=== PATIENT | female | born 1990 | race Hispanic/Latino ===

== ENCOUNTER 2020-01-02 12:34 | Outpatient (RCR) | payer MEDICAID, SELFPAY ==
--- NOTE | ~2020-01-02 | US_ITS ---
EXAMINATION: US OB follow up w BPP DATE: 01/02/2020 14:22 INDICATION: Third trimester. TECHNIQUE: Real-time pelvic ultrasound was performed. COMPARISON: None. FINDINGS: There is a single living fetus in vertex presentation. The placenta is fundal. heart rate is 1 23 beats per minute (bpm). The amniotic fluid index is 8.1 cm, which is normal. The following biometric data were obtained: head circumference (HC): 31.2 cm; abdominal circumference (AC): 32.4 cm; femur length (FL): 7.4 cm. These measurements are concordant. Estimated weight is 2927 g +/- 439 g, which correlates with 12th percentile when 01/09/20 is use d as estimated date of delivery. As single measurements, these parameters are each equal to the following estimated gestational ages: HC: 35 weeks 0 days. AC: 36 weeks 2 days. FL: 37 weeks 5 days. estimated gestational age based solely on measurements from this exam is 36 weeks 2 days +/- 2 weeks 4 days. Biophysical profile performed by the technologist: breathing (30 sec sustained breathing in 30 minutes): 2 out of 2 movement (3 gross body movements in 30 minutes): 2 out of 2 tone (one episode of uunypew-obnfjmroz-gickhlq limb movement): 2 out of 2 Amniotic fluid pocket (2 cm): 2 out of 2 Total score: 8 out of 8 IMPRESSION: 1. Single living fetus in vertex presentation. 2. Estimated weight is 2927 g +/- 439 g, which correlates with 12th percentile when 01/09/20 is used as estimated date of delivery. 3. Biophysical profile 8 out of 8. Reviewed, dictated and finalized at location A. IMPRESSION: 1. Single living fetus in vertex presentation. 2. Estimated weight is 2927 g +/- 439 g, which correlates with 12th perc entile when 01/09/20 is used as estimated date of delivery. 3. Biophysical profile 8 out of 8.
--- NOTE | 2020-01-02 15:01 | PC.NURSE ---
Dr. Harris updated on ultrasound report, NST and BPP results. Patient to remain on unit until Dr. Harris consults with [facility]. Dr. Harris will call with further instructions. Patient does not need to be monitored at this time.
[2020-01-02 15:25] VITALS: BP 114/74; PULSE 73
== END 2020-01-05 08:16 | disposition home or self-care (01) ==
LOC: ANHOBOP 12:34
PROVIDERS: Visit Provider Obstetrics & Gynecology
DX: O09.33 Supervision of pregnancy with insufficient antenatal care, third trimester (principal); Z3A.39 39 weeks gestation of pregnancy
CPT/HCPCS: 59025; 76816; 76819

== ENCOUNTER 2020-01-04 15:47 | Inpatient (IN) | payer MEDICAID, SELFPAY ==
[2020-01-04 16:00] VITALS: TEMP 36.6
[2020-01-04 16:04] VITALS: BMI 32.7
[2020-01-04] MEDS: LACTATED RINGERS 1,000 ML 125 ML IV CONT (16:15)
--- NOTE | 2020-01-04 16:15 | WPDANESEPPF ---
Anes - Initial Pre Proc Eval Procedure: Operation Date: 01/06/20 07:30 Proposed Procedures p Repeat Low Transverse Section - Robert Harris MD Date/Time: 01/04/20 16:15 Surgeon: Robert Harris MD Pre Op Diagnosis: Labor Patient Data Age: 29 Gender: F Height: 5 ft Weight: 76 kg Allergies Allergy/AdvReac Type Severity Reaction Status Date / Time No Known Allergies Allergy Verified 01/02/20 14:44 Home Medications Medication Instructions Recorded Confirmed Type [id number] 1 cap PO DAILY 01/02/20 01/02/20 History [One-A-Day Women's 1] Patient hx anesthesia problems: none Family hx anesthesia problems: none PMFSH Past Medical History Medical History (Updated 01/04/20 @ 16:16 by Jack Jurado MD) care insufficient Surgical History Surgical History (Updated 01/04/20 @ 16:16 by Jack Jurado MD) History of section Family History Family History Other No pertinent family history Social History Social History Smoking status: Never smoker Second hand tobacco smoke exposure: No Substance use: never Gender identity (if verbalized by the patient): Female Spiritual care concerns: No Anes - Eval Final PreProcedure Day of Procedure 01/04/20 16:15 Patient weight: overweight Heart: regular rate and rhythm Lungs: clear to auscultation Airway: Mallampati scale class II Neurological: alert and oriented Last oral intake: >/= 8 hours ASA classification: II Emergent: no Anesthetic plan: proceed Anesthesia type and monitoring: regional spinal and standard monitoring Informed Consent: The patient's anesthetic plan and its attendant risks and benefits were discussed with the patient and family who acted as wealth management manager.. Questions were solicited and answers provided to the satisfaction of the patient and family.
[2020-01-04 16:29] LABS: Basophils Percent Auto 0.2 % (0.2-1.2); Eosinophils Absolute Auto 0.1 K/mm3 (0-0.3); Eosinophils Percent Auto 0.8 % (0-4.4); Hematocrit 32.2 % (37.0-47.0); Hemoglobin 10.2 g/dL (12.0-15.0); Immature Granulocyte Absolute 0.05 K/mm3 (0.00-0.031); Immature Granulocyte Percent A 0.5 % (0-0.5); Lymphocytes Absolute Auto 2.31 K/mm3 (0.9-3.2); Lymphocytes Percent Auto 23.8 % (18.3-44.2); Mean Corpuscular HGB Conc 31.7 g/dl (32-36); Mean Corpuscular Hemoglobin 24.7 pg (26-34); Mean Platelet Volume 10.1 fl (7.4-10.4); Monocytes Absolute Auto 0.7 K/mm3 (0.1-0.6); Monocytes Percent Auto 6.9 % (2.6-8.5); Neutrophils Absolute Auto 6.6 K/mm3 (1.3-6.7); Neutrophils Percent Auto 67.8 % (45.5-73.1); Platelet Count Result 290 k/mm3 (150-375); Red Blood Count 4.13 M/mm3 (4.2-5.4); Red Cell Distribution Width 14.7 % (11.5-14.5); White Blood Count 9.7 K/mm3 (4.5-10.0)
[2020-01-04] MEDS: OXYTOCIN 30 UNITS/NS 500 ML 30 UNITS/500 ML BAG 999 UNITS IV CONT (16:40)
--- NOTE | 2020-01-04 17:10 | PM.IMHP ---
H&P: HPI History of Present Illness Date/Time: 01/04/20 17:10 Chief complaint: Labor Narrative: Ariadne Black is a 29 y/o HF [facility] 8 cm at 40 weeks. Patient just moved to the area from [place]. no other care other than one visit in [place] and one vist with me thursday Us today 38week ega normal charlene no amnio done Review of Systems Review of Systems: All systems reviewed & are unremarkable except as noted in HPI and below Constitutional: Constitutional: Reports no additional constitutional complaints Eyes: Eyes: Reports no additional eye complaints ENT: Reports system reviewed and no additional complaints, except as documented Cardiovascular: Cardiovascular: Reports no additional cardiovascular complaints Respiratory: Respiratory: Reports no additional respiratory complaints Gastrointestinal: Gastrointestinal: Reports no additional gastrointestinal complaints Genitourinary: Genitourinary: Reports no additional female genitourinary complaints Musculoskeletal: Musculoskeletal: Reports no additional musculoskeletal complaints Integumentary/Breasts: Skin/Breast: Reports system reviewed and no additional complaints, except as docu Neurologic: Reports system reviewed and no additional complaints, except as documented Psychiatric: Psychiatric: Reports no additional psychiatric complaints Endocrine: Endocrine: Reports no additional endocrine complaints Hematologic/Lymphatic: Hematologic/Lymphatic: Reports no additional hematologic/lymphatic complaints Allergic/Immunologic: Allergic/Immunologic: Reports no additional allergic/immunologic complaints [facility] Past Medical History Medical History (Updated 01/04/20 @ 17:22 by Robert Harris MD) Late care care insufficient Surgical History Surgical History (Updated 01/04/20 @ 17:17 by Robert Harris MD) Delivery by section History of section 07/14/2009 40w7 lbs.BreechFPrimary CesareanFull Term Birth[facility] Family History Family History Other No pertinent family history Social History Social History (Updated 01/04/20 @ 17:18 by Robert Harris MD) Smoking status: Never smoker Second hand tobacco smoke exposure: No Alcohol intake: never Substance use: never Substance use type: does not use Living arrangements: with family Occupation/Education: unemployed Gender identity (if verbalized by the patient): Female Sexual Orientation (if Verbalized by the Patient): Straight or Heterosexual Spiritual care concerns: No Agree to blood products: Yes Meds Home Medications and Allergies Home Medications Medication Instructions Recorded Confirmed Type [id number] 1 cap PO DAILY 01/02/20 01/02/20 History [One-A-Day Women's 1] Allergies Allergy/AdvReac Type Severity Reaction Status Date / Time No Known Allergies Allergy Verified 01/02/20 14:44 Exam Const: General: cooperative, healthy appearing, comfortable, no acute distress, well developed, alert, awake and Physically active Nutritional Appearance: thin Orientation/consciousness: patient oriented x3 Limitations: no limitations HENMT: Head: normal to inspection Ears: hearing grossly normal bilaterally General nose exam: Normal external nose present Face and sinus: normal facial exam Mouth: Yes Normal oral and palatal mucosa present Teeth and gingiva: dentition normal Throat: posterior oropharynx normal Eyes: General: appearance normal, both eyes and all related structures Neck: Neck: normal visual inspection and full ROM Chest: Chest palpation & inspection: normal inspection of the chest Breast/axilla inspection: normal inspection of the breasts Breast/axilla palpation: normal palpation of the breasts Resp: Effort & Ins
[2020-01-04] MEDS: OXYTOCIN 30 UNITS/NS 500 ML 30 UNITS/500 ML BAG 125 UNITS IV CONT (17:15)
--- NOTE | 2020-01-04 17:23 | P.HPUP_ITS ---
History and Physical Update Update Date/Time: 01/04/20 17:23 History and Physical has been reviewed, including an updated exam of the patient. There are NO changes in the patient's condition. Risks, benefits, and alternatives have been discussed and questions answered. Patient agrees to proceed with procedure. 29 y/o HF with late care only 1 visit in [place] at 25 weeks and 1 visit at 39 weeks in [place] with a history of previous section for breech presentation performed in [facility]. She is scheduled for repeat on ThursdayJanuary 05 presents at 40.2 weeks. she presents to [facility] with spontaneous onset of labor senait every 2 minutes active phase 8 cm dilated. I anticipate vaginal after C- section soon informed consent obtained
--- NOTE | 2020-01-04 17:27 | P.HP_ITS ---
Obstetrics - Admit Note Admission Note: record reviewed. No pertinent additions to the history and/or any subsequent changes in the physical findings that are not consistent with the expected course of the were found. Additions to the history and/or subsequent changes in the physical findings follow. None. 29 y/o HF with late care only 1 visit in [place] at 25 weeks and 1 visit at 39 weeks in [place] with a history of previous section for breech presentation performed in [facility]. She is scheduled for repeat on ThursdayJanuary 05 presents at 40.2 weeks. she presents to [facility] with spontaneous onset of labor senait every 2 minutes active phase 8 cm dilated. I anticipate vaginal after C- section soon informed consent obtained
--- NOTE | 2020-01-04 17:28 | P.PNOB_ITS ---
Pain Control Date/time seen: 01/04/20 17:28 Pain control: tolerating well Comments: 29 y/o HF with late care only 1 visit in [place] at 25 weeks and 1 visit at 39 weeks in [place] with a history of previous section for breech presentation performed in [facility]. She is scheduled for repeat on ThursdayJanuary 05 presents at 40.2 weeks. she presents to [facility] with spontaneous onset of labor senait every 2 minutes active phase 8 cm dilated. I anticipate vaginal after C- section soon informed consent obtained Pelvic Exam Dilation (cm): 9 Effacement (%): 100 station: +1 Amniotic membrane status: Ruptured ( amniotomy performed clear fluid obtained a nterior rim) Contractions Monitor mode: External Contraction frequency: 2 Contraction duration: 45 Contraction pattern: Regular Contraction phase: Resting Contraction intensity: Strong/Firm Status status: Category l Assessment and Plan Assessment: active labor and other ( previous undergoing trial of labor with vaginal after due to rapid active phase) Plan: continuous present management and other ( vaginal after after trial of labor due to rapid active phase anticipate vaginal delivery soon informed consent obtained patient understands her condition procedure and risks and agrees to proceed)
--- NOTE | 2020-01-04 17:30 | P.PCNOB_ITS ---
OB - Delivery Note Procedure Delivery date: 01/04/20 Procedure: Procedures Operation Date: 01/06/20 07:30 Normal spontaneous vertex vaginal delivery vaginal after previous section - successful Viable male infant delivered over an intact perineum spontaneous delivery and placenta events: Previous Intrapartal events: Precipitous Labor < 3 hours Induction method: none Delivery augmentation: rupture of membranes Delivery monitor: external FHT and external uterine Route of delivery: Laceration Description: None Specimen: Yes ( placenta, cord blood gases, cord blood) Estimated blood loss (mL): 50 Anesthesia type: None Disposition: floor Complications: none Narrative: normal spontaneous vertex vaginal delivery a viable male over an intact perineum normal delivery of anterior shoulder delivered placed onto the maternal abdomen cord clamped and cut spontaneous respirations and cry no observed abnormalities of the exam handed to nursery nurse in attendance scores 8 and 9 at 1 and 5 minutes weighing 7 lb 3 oz 19-1/2 inches long taken to the nursery in stable condition placenta cord gases cord blood obtained and then the placenta was delivered spontaneously intact with three-vessel cord sent to pathology the uterus contracted well with Pitocin given intravenously there were not cut stairs or lacerations blood loss 50 mL delivery in room [address] Goodwin thick circumcision desired normal care---successful Baby Date of : 01/04/20 Time of : 16:38 Weeks of gestation at delivery: 39 Infant gender: Male Weight (pounds): 7 Weight (ounces): 3 presentation: vertex position: Left Occiput Anterior Placenta delivery description: Spontaneous and Normal Configuration cord vessel description: 3 Vessels score one minute: 8 score five minutes: 9
[2020-01-04 17:35] LABS: HIV 1/2 Ab P24 Ag Result Negative (Negative)
[2020-01-04 17:36] LABS: Rubella IgG Antibody 78.5 IU/ML
[2020-01-04 17:39] LABS: Hepatitis B Surface Antigen Negative (Negative)
[2020-01-04] MEDS: AMPICILLIN 2 GM/NS 100 ML 2 GM/100 ML BAG IVPB (18:28)
--- NOTE | 2020-01-04 19:28 | OBPPTRN ---
Patient transferred to post room #288 via wheelchair with in crib. Support person present. Oriented to unit, room, information board, rooming in, admission packet and security measures. Patient verbalizes understanding.
[2020-01-04 20:00] VITALS: BP 101/60; PULSE 77; RESP 17; TEMP 36.9
[2020-01-05] MEDS: IBUPROFEN 600 MG TABLET PO ×3 (04:47→18:33)
[2020-01-05 05:44] LABS: Hematocrit 29.7 % (37.0-47.0); Hemoglobin 9.5 g/dL (12.0-15.0)
--- NOTE | 2020-01-05 07:00 | PC.NURSE ---
PT introductions made and plan of care discussed per post , pain management, breast feeding, daily care activities. PT verbalized understanding through her who speaks ukrainian
[2020-01-05 08:00] VITALS: BP 91/61; PULSE 67; RESP 18; TEMP 36.6; O2SAT 99
[2020-01-05 10:00] VITALS: PULSE 67; RESP 18; O2SAT 99
[2020-01-05 11:16] LABS: Rapid Plasma Reagin Non-Reactive (NonReactive)
[2020-01-05] MEDS: LANOLIN (LANSINOH) 7.5 GM CREAM 1 APPLIC TOPICAL (12:49)
[2020-01-05] MEDS: POLYSACCHARIDE IRON COMPLEX 150 MG CAPSULE PO ×2 (12:49→18:33)
[2020-01-05] MEDS: DOCUSATE SODIUM 100 MG CAPSULE PO ×2 (12:49→18:33)
[2020-01-05] MEDS: MULTIVIT/MIN/PREN/FOL AC/IRON TABLET 1 TAB PO (12:49)
--- NOTE | 2020-01-05 14:50 | PC.NURSE ---
Consult with pt., with interpretation line and FOB. Consulted with patient, mother reports is sleepy at times and is having difficulties keeping awake. Mother has supplemented a few times due to sleepiness. Once latched mother reports infant is nursing with slight tenderness. Discussed latch and how this may impact mother?s comfort and infant intake. Mother reports first child for 7 years. Reviewed feeding cues, frequencies, duration of feedings, feeding elimination flow sheet, and signs of adequate intake. Demonstrated stimulation techniques to wake for feeding. Assisted with infant to breast. Reviewed positioning/alignment in cross cradle, holding breast in U hold and guided asymmetrical latch on. Discussed the rational for each. Infant was able to latch correctly. Infant nursed in bursts with eager steady draws and occasional swallowing noted followed with long pausing. Reviewed signs of a correct latch, effective nursing and suck swallow ratio. Infant was able to maintain latch without discomfort to mother. Nipple care reviewed. Advised to stimulate infant while feeding to keep awake and effectively feeding for increased intake and to assist with maintaining deep latch. Demonstrated how to adjust latch more deeply while feeding. Instructed mother to call out for RN assistance if she is unable to latch for feeding or she has discomfort with nursing. Instructed feeding should be initiated three hours from start of last feeding or if feeding cues are noted before. Mother voiced understanding of information shared.
--- NOTE | 2020-01-05 17:19 | P.PNOB_ITS ---
OB - PN: Subj Subjective Date/time seen: 01/05/20 17:20 Patient comments: no complaints, pain well controlled, tolerating diet and flatus present [place] baby status: doing well [place] feeding status: exclusively breast feeding OB - PN: Obj Data Labs CBC & Chem 7: 01/05/20 04:40 Labs: Laboratory Results - last 24 hr 01/04/20 01/04/20 01/04/20 16:19 16:19 16:19 Hgb Hct RPR Hep Bs Antigen HIV 1&2 Ab/P24 Ag 4thGn Negative Rubella IgG Antibody 78.5 Blood Type O Positive Antibody Screen Negative 01/04/20 01/04/20 01/05/20 16:19 16:20 04:40 Hgb 9.5 L Hct 29.7 L RPR Non-reactive Hep Bs Antigen Negative HIV 1&2 Ab/P24 Ag 4thGn Rubella IgG Antibody Blood Type Antibody Screen OB - PN A/P Assessment and Plan (1) , delivered: Code(s): O34.219 - Maternal care for unspecified type scar from previous delivery Status: Acute (2) Term delivered: Code(s): O80 - Encounter for full-term uncomplicated delivery Status: Acute Time Spent With Patient Time: Total time spent is greater than 50% in coordination of care (as documented) at patient's floor/unit and/or counseling patient: Review of Systems Review of Systems: All systems reviewed & are unremarkable except as noted in HPI and below Exam Const: General: cooperative, healthy appearing, comfortable, no acute distress and well developed Nutritional Appearance: well nourished Orie ntation/consciousness: patient oriented x3 Limitations: no limitations HENMT: Head: normal to inspection and atraumatic Eyes: General: appearance normal, both eyes and all related structures Neck: Neck: normal visual inspection and full ROM Chest: Chest palpation & inspection: normal inspection of the chest Breast/axilla inspection: normal inspection of the breasts Breast/axilla palpation: normal palpation of the breasts Resp: Effort & Inspection: normal respiratory effort Auscultation: clear to auscultation bilaterally Cardio: Palpation: normal PMI Rate: regular rate Rhythm: regular rhythm GI: Inspection: normal to inspection GI Palp: Yes Soft to palpation Percussion: Yes normal to percussion Auscultation: normal bowel sounds : General: Yes bladder normal to inspection External Female Exam: normal external appearance Back/Spine/Pelvis: Back: no CVA tenderness Skin: General skin exam: normal color Neuro: General: patient oriented x3, gait normal, tone normal, moves all extremities, Normal light touch and pain sensation and no focal motor deficits Extrem: General: normal to inspection and full ROM Psych: Appearance: grossly normal Mental Status: mental status grossly normal Speech and movement: Normal speech and movement present Affect: normal affect Attitude: cooperative Thought process: Normal thought process present Thought content: Yes Normal thought content present Insight: Good insight present (Psych) Judgement: Good judgement present (Psych)
[2020-01-05 21:08] VITALS: BP 99/65; PULSE 74; RESP 18; TEMP 36.8
[2020-01-06] MEDS: IBUPROFEN 600 MG TABLET PO (04:41)
[2020-01-06 08:00] VITALS: BP 103/73; PULSE 83; RESP 18; TEMP 36.8; O2SAT 100
--- NOTE | 2020-01-06 09:33 | PM.OBDSVD ---
DS: Admitting Diagnosis Admitting Diagnosis Admitting Diagnosis: term spontaneous onset of Labor previous section rapid active phase desires late care DS: Discharge Diagnosis Discharge Diagnosis (1) Term delivered: Code(s): O80 - Encounter for full-term uncomplicated delivery Status: Acute (2) , delivered: Code(s): O34.219 - Maternal care for unspecified type scar from previous delivery Status: Acute (3) Spontaneous onset of labor: Status: Acute (4) Delivery by section: Status: Acute (5) Late care: Code(s): O09.30 - Supervision of with insufficient care, unspecified trimester Status: Acute OB - DS: Summary Hospital Course Time spent discussing smoking cessation with patient: 3 to 10 minutes OB Procedures : Ultrasound OB Procedures Intrapartum: OB Procedures: : None Peripartum Data Delivery Method: Natural Vaginal Laceration description: None Episiotomy description: None Procedures: Procedures Operation Date: 01/06/20 07:30 normal spontaneous vertex vaginal delivery viable male and placenta successful vaginal after section complications: none [place] 1: Gender: Male Disposition of : home Status at Discharge Functional status at discharge: independent ambulation Overall status at discharge: patient is back to baseline Time Spent with Patient Time attestation: Total time spent providing and/or coordinating discharge services: Time spent: Less than 30 minutes Exam Const: General: cooperative, healthy appearing, comfortable, no acute distress, well developed, alert, awake and Physically active Nutritional Appearance: thin Orientation/consciousness: oriented to person Limitations: no limitations HENMT: Head: normal to inspection Eyes: General: appearance normal, both eyes and all related structures Neck: Neck: normal visual inspection Chest: Chest palpation & inspection: normal inspection of the chest Resp: Effort & Inspection: normal respiratory effort Cardio: Rate: regular rate Rhythm: regular rhythm GI: Inspection: normal to inspection : External Female Exam: normal external appearance Back/Spine/Pelvis: Back: no CVA tenderness Skin: General skin exam: normal color Neuro: General: oriented to person, oriented to place, oriented to time, patient oriented x3, gait normal, tone normal, moves all extremities, Normal light touch and pain sensation, no meningeal signs, no focal motor deficits and CN's II-XI intact bilaterally Extrem: General: normal to inspection and full ROM Psych: Appearance: grossly normal Mental Status: mental status grossly normal Speech and movement: Normal speech and movement present Affect: normal affect Attitude: cooperative Thought process: Normal thought process present Thought content: Yes Normal thought content present Insight: Good insight present (Psych) Judgement: Good judgement present (Psych) DS: Data Data Completed and Pending Pending studies at discharge: Pending at discharge 01/04/20 17:23 Surgical [PTH] Routine Labs on day of discharge: Labs from last 24 hours 01/04/20 01/04/20 01/04/20 16:20 16:19 16:19 WBC RBC Hgb Hct MCV MCH MCHC RDW Plt Count MPV Immature Gran % (Auto) Neut % (Auto) Lymph % (Auto) [place] % (Auto) Eos % (Auto) Baso % (Auto) Lymph # (Auto) [place] # (Auto) Eos # (Auto) Baso # (Auto) Abs Immat Gran (auto) Absolute Neuts (auto) Absolute Nucleated RBC Nucleated RBC % RPR Pending Hep Bs Antigen Negative HIV 1&2 Ab/P24 Ag 4thGn Rubella IgG Antibody Blood Type O Positive Antibody Screen Negative 01/04/20 01/04/20 01/04/20 16:19 16:19 16:19 WBC 9.7 RBC 4.13 L Hgb
--- NOTE | 2020-01-06 09:34 | P.PNOB_ITS ---
OB - PN: Subj Subjective Date/time seen: 01/06/20 09:34 Patient comments: no complaints, pain well controlled, tolerating diet and flatus present [place] baby status: doing well [place] feeding status: exclusively breast feeding OB - PN: Obj Data Labs CBC & Chem 7: 01/05/20 04:40 Labs: Laboratory Results - last 24 hr 01/04/20 16:20 RPR Non-reactive OB - PN A/P Assessment and Plan (1) , delivered: Code(s): O34.219 - Maternal care for unspecified type scar from previous delivery Status: Acute Assessment and Plan: discharged to home today return to the office in 3 weeks (2) Term delivered: Code(s): O80 - Encounter for full-term uncomplicated delivery Status: Acute Time Spent With Patient Time: Total time spent is greater than 50% in coordination of care (as documented) at patient's floor/unit and/or counseling patient: Review of Systems Review of Systems: All systems reviewed & are unremarkable except as noted in HPI and below Exam Const: General: cooperative, healthy appearing, comfortable, alert, awake and Physically active HENMT: Head: normal to inspection Eyes: General: appearance normal, both eyes and all related structures Neck: Neck: normal visual inspection Chest: Chest palpation & inspection: normal inspection of the chest Resp: Effort & Inspection: normal respiratory effort Cardio: Rate: regular rate Rhythm: regular rhythm GI: GI Palp: Yes Soft to palpation Auscultation: normal bowel sounds : General: Yes no CVA tenderness External Female Exam: normal external appearance Back/Spine/Pelvis: Back: no CVA tenderness Skin: General skin exam: normal color Neuro: General: patient oriented x3, gait normal, tone normal, moves all extremities and Normal light touch and pain sensation Extrem: General: normal to inspection and full ROM Psych: Appearance: grossly normal Speech and movement: Normal speech and movement present Affect: normal affect Attitude: cooperative Thought process: Normal thought process present Thought content: Yes Normal thought content present Insight: Good insight present (Psych) Judgement: Good judgement present (Psych)
[2020-01-06] MEDS: POLYSACCHARIDE IRON COMPLEX 150 MG CAPSULE PO (12:29)
[2020-01-06] MEDS: DOCUSATE SODIUM 100 MG CAPSULE PO (12:29)
[2020-01-06] MEDS: MULTIVIT/MIN/PREN/FOL AC/IRON TABLET 1 TAB PO (12:29)
--- NOTE | 2020-01-06 15:00 | PC.NURSE ---
Education with circular saw edge fuser. Observed mother is able to independently latch with appropriate positioning/alignment. She denies any nipple discomfort, is feeding as required and waking to feed if needed. Infant has had at least 8 effective feedings in the past 24 hours, and is currently meeting outcomes for weight, output, jaundice and feeding frequencies. Mother states she feels confident to continue effective at home. Reviewed transition to breast milk, signs of adequate intake, and engorgement/relief. Instructed to call ICP if intake/output less than required. Reviewed regular medications mother is taking. Information provided per [place]. Reviewed community resources on the [facility] website and in the Mom/Baby guide. Information on outpatient services provided. Mother has no further questions at this time.
--- NOTE | 2020-01-06 15:18 | PC.NURSE ---
Patient discharged home with in safety seat accompanied by father of baby. Patient and infant discharged at 1518 on 01/06/2020.
--- NOTE | 2020-01-06 16:00 | PCCCNOTE ---
Both FOB and pt. speak primarily Occitan. ShepHertz device was utilized with interpretor Amarjit providing assistance. Met with pt. today who reports this is her second child. FOB is in room. Pt. has all necessary supplies including a car seat, crib, clothing and bottles. Pt. has family support. Resources provided. Pt. and FOB deny any further needs.
[2020-01-07 10:49] VITALS: BP 106/64; PULSE 76; RESP 18; TEMP 36.9; O2SAT 100
== END 2020-01-06 15:18 | disposition home or self-care (01) | DRG 560 ==
LOC: ANHLDR 17:52 → ANHOB2 19:33
PROVIDERS: Admitting Provider Obstetrics & Gynecology; Visit Provider Obstetrics & Gynecology
DX: O62.3 Precipitate labor (principal); Z37.0 Single live birth; Z3A.40 40 weeks gestation of pregnancy; O34.211 Maternal care for low transverse scar from previous cesarean delivery
CPT/HCPCS: 36415; 85014; 85018; 85025; 86592; 86703; 86762; 86850; 86900; 86901; 87340; 88307; A9270; G0432; J0290; J2590; J7120

== ENCOUNTER 2023-01-02 22:02 | Observation (INO) | payer BC, SELFPAY ==
[2023-01-02] VITALS (29 sets, daily range): BP systolic 99–114; BP diastolic 61–79; PULSE 67–83; TEMP 36–36.6; O2SAT 98–100
[2023-01-02] MEDS: LACTATED RINGERS 1,000 ML 999 ML IV CONT (23:12)
--- NOTE | 2023-01-13 08:39 | PM.OBTRLD ---
OB - Triage/Final Diagnosis Visit Information Reason for evaluation: threatened labor Comments/Additional reasons for admission: I have assessed the risk for this patient, Ariadne Sai Wayne, and determined that she would benefit from observation care.
== END 2023-01-03 00:25 | disposition home or self-care (01) ==
PROVIDERS: Admitting Provider Obstetrics & Gynecology Gynecology; Visit Provider Obstetrics & Gynecology Gynecology
DX: O47.02 False labor before 37 completed weeks of gestation, second trimester (principal); Z3A.27 27 weeks gestation of pregnancy
CPT/HCPCS: G0378; G0379; J7120

== ENCOUNTER 2023-01-03 13:23 | Inpatient (IN) | payer BC, SELFPAY ==
[2023-01-03] VITALS (17 sets, daily range): BP systolic 94–123; BP diastolic 53–83; PULSE 69–129; RESP 16; TEMP 36.9; O2SAT 99; BMI 29.7
--- NOTE | 2023-01-03 15:07 | WPDHPUPDATE1 ---
History and Physical Update Update Date/Time: 01/03/23 15:07 History and Physical has been reviewed, including an updated exam of the patient. There are NO changes in the patient's condition. Risks, benefits, and alternatives have been discussed and questions answered. Patient agrees to proceed with procedure.
--- NOTE | 2023-01-03 15:07 | PM.IMHP ---
H&P: HPI History of Present Illness Date/Time: 01/03/23 15:07 Chief Complaint: Active labor Narrative: The patient is a 32-year-old 3 para 2 admitted in active labor. The patient was seen in triage early this morning and was 2cm and had no cervical change. The patient was instructed to proceed if labor occurred to her hospital of record which is [facility]. Patient had a worsening of her contractions and arrived here by ambulance in labor. The patient is Eritrean-speaking. A dry primer powder blender was used by the RN for verifying her health history just prior to my arrival. The patient has been receiving care at the ground at [facility] and per her received records has had good care. Patient's appears to have been uncomplicated. Her labs O positive, rubella immune, RPR negative, HIV negative, hepatitis-B surface antigen negative, group B strep negative. The patient with a prior section for breech in [facility] followed by subsequent vaginal delivery at [facility] by Dr. Harris after arriving to the hospital at 8cm. That had limited care with 2 visits. No operative note is available. The patient was informed if she wishes to she needed to seek care at her hospital record and her physician that has been caring for her throughout this . The patient was instructed at 3:00 a.m. that if she returned [place] that I would do a repeat . Patient has been informed of the current plan to proceed with due to cervical change through the gas pump attendant and the patient is in and agreement with the plan. [facility] Surgical History Surgical History (Updated 01/03/23 @ 15:17 by Jeannie Hunter MD) Delivery by section History of section 07/14/2009 40w7 lbs.BreechFPrimary CesareanFull Term [facility] Family History Family History Other No pertinent family history Social History Social History (Updated 01/04/20 @ 17:18 by Robert Harris MD) Smoking status: Never smoker Second hand tobacco smoke exposure: No Alcohol intake: never Substance use: never Substance use type: does not use Living arrangements: with family Occupation/Education: unemployed Gender identity (if verbalized by the patient): Female Sexual Orientation (if Verbalized by the Patient): Straight or Heterosexual Spiritual care concerns: No Agree to blood products: Yes Meds Home Medications and Allergies Home Medications Medication Instructions Recorded Confirmed Type vit 123-iron 28 mg-folic 1 cap PO DAILY 01/02/20 01/02/20 History acid 800 hoz-ddsie-3r 235 mg capsule (One-A-Day Women's 1 DHA-FA) Allergies Allergy/AdvReac Type Severity Reaction Status Date / Time No Known Allergies Allergy Verified 01/02/20 14:44 Vital Signs Vital Signs - 24 hr 01/03/23 13:31 01/03/23 13:45 01/03/23 14:00 Pulse Rate 76 74 72 Blood Pressure 110/74 113/70 101/66 01/03/23 14:15 01/03/23 14:30 01/03/23 14:45 Pulse Rate 71 69 77 Blood Pressure 94/59 L 95/56 L 104/64 Exam Const: General: No comfortable Nutritional Appearance: average body habitus Resp: Effort & Inspection: normal respiratory effort GI: Inspection: other ( gravid) GI Palp: No abdominal tenderness : Manual OB Exam: dilated (4.5) and effaced ( 80%) Assessment and Plan Assessment and plan (1) 39 weeks gestation of : Code(s): Z3A.39 - 39 weeks gestation of Status: Acute (2) Spontaneous onset of labor: Status: Acute (3) Previous section complicating : Code(s): O34.219 - Maternal care for unspecified type scar from previous delivery Status: Acute Assessment and Plan: plan to proceed with repeat section once the
[2023-01-03] MEDS: LACTATED RINGERS 1,000 ML 125 ML IV CONT (15:10)
[2023-01-03 15:14] LABS: Basophils Percent Auto 0.3 % (0.2-1.2); Eosinophils Absolute Auto 0.1 K/mm3 (0-0.3); Eosinophils Percent Auto 0.8 % (0-4.4); Hematocrit 35.1 % (37.0-47.0); Hemoglobin 11.6 g/dL (12.0-15.0); Immature Granulocyte Absolute 0.06 K/mm3 (0.00-0.031); Immature Granulocyte Percent A 0.5 % (0-0.5); Lymphocytes Absolute Auto 2.53 K/mm3 (0.9-3.2); Lymphocytes Percent Auto 21.3 % (18.3-44.2); Mean Corpuscular Hemoglobin 28.2 pg (26-34); Mean Corpuscular Volume 85.2 fl (80-100); Mean Platelet Volume 10.1 fl (7.4-10.4); Monocytes Absolute Auto 0.7 K/mm3 (0.1-0.6); Monocytes Percent Auto 6.2 % (2.6-8.5); Neutrophils Absolute Auto 8.4 K/mm3 (1.3-6.7); Neutrophils Percent Auto 70.9 % (45.5-73.1); Platelet Count Result 273 k/mm3 (150-375); Red Blood Count 4.12 M/mm3 (4.2-5.4); Red Cell Distribution Width 13.4 % (11.5-14.5); White Blood Count 11.9 K/mm3 (4.5-10.0)
--- NOTE | 2023-01-03 15:17 | LDADM ---
This patient, Ariadne Black, was admitted to Labor/Delivery/Recovery 106 on 01/03/23 at 14:30. Plans for labor, pain management and were discussed with patient. Patient/family oriented to hospital policies and general routines including ID bracelet, bed and alarms, visiting hours, pain management, procedures, bathroom and other care routines, personal items, smoking policy, room service/diet and guest tray routines, infant security routines, and visiting hours. Patient/Family are encouraged to report perceived risks to care and to ask questions if they do not understand what they are told or what they should do. See OBIX for further documentation.
--- NOTE | 2023-01-03 15:41 | PM.OBPRVD ---
OB - Delivery Note Procedure Delivery date: 01/03/23 Procedure: Procedures Operation Date: 01/03/23 15:15 <No data on this case meets the specified criteria> Events: Previous Delivery Induction method: None Delivery monitor: External FHT and External Uterine Route of delivery: Laceration Description: Perineal - 2nd Degree Delivery repair: vicryl (3-0) Specimen: No Quantitative Blood Loss (ml): 150 Anesthesia type: Local Disposition: Floor Complications: none Narrative: While awaiting labs to proceed with the patient called out in severe pain and when checked was noted to be complete with a bulging bag to the introitus. The electrician rectifier maintenance service was immediately called and talked to the patient through the remainder of the delivery, placental delivery, and suturing of her laceration. The water quickly broke and the patient began pushing and delivered over the next minute into the bed under controlled circumstances. [place] Baby Date of : 01/03/23 Weeks of gestation at delivery: 39 gender: Female Weight (pounds): 7 Weight (ounces): 11 presentation: vertex position: Right Occiput Anterior Placenta delivery description: Spontaneous Cord Vessel Description: 3 Vessels score one minute: 8 score five minutes: 9
--- NOTE | 2023-01-03 15:44 | PM.OBDSVD ---
DS: Admitting Diagnosis Discharge Date 01/04/23 Admitting Diagnosis Active labor at 39 weeks with previous section DS: Discharge Diagnosis Discharge Diagnosis (1) , delivered: Code(s): O34.219 - Maternal care for unspecified type scar from previous delivery Status: Acute (2) 39 weeks gestation of : Code(s): Z3A.39 - 39 weeks gestation of Status: Acute (3) Previous section complicating : Code(s): O34.219 - Maternal care for unspecified type scar from previous delivery Status: Acute OB - DS: Summary OB Procedures : Ultrasound OB Procedures Intrapartum: OB Procedures: : None Peripartum Data Infant Delivery Method: Natural Vaginal Laceration Description: Perineal - 2nd Degree Procedures: Procedures Operation Date: 01/03/23 15:15 <No data on this case meets the specified criteria> complications: none Status at Discharge Functional status at discharge: independent ambulation Overall status at discharge: patient is progressing back to baseline Time Spent with Patient Time attestation: Total time spent providing and/or coordinating discharge services: DS: Data Data Completed and Pending Labs on day of discharge: Labs from last 24 hours 01/03/23 15:09 WBC 11.9 H RBC 4.12 L Hgb 11.6 L Hct 35.1 L MCV 85.2 MCH 28.2 MCHC 33.0 RDW 13.4 Plt Count 273 MPV 10.1 Immature Gran % (Auto) 0.5 Neut % (Auto) 70.9 Lymph % (Auto) 21.3 [place] % (Auto) 6.2 Eos % (Auto) 0.8 Baso % (Auto) 0.3 Lymph # (Auto) 2.53 [place] # (Auto) 0.7 H Eos # (Auto) 0.1 Baso # (Auto) 0.0 Abs Immat Gran (auto) 0.06 H Absolute Neuts (auto) 8.4 H Absolute Nucleated RBC 0.0 Nucleated RBC % 0.0 RPR Pending Discharge Plan Discharge Attending physician on discharge: Jeannie Hunter Discharging Clinician: Lynne Del Rosario Anticipated Discharge Date/Time: 01/04/23 11:00 Patient Disposition: Home, Self-Care Activity: may shower and pelvic rest Diet: regular Wound Care Instructions: follow printed instructions Discharge Instructions: Education: Mom and Baby Guide Given to: Mother Follow-Up: Call your delivering provider's office for an appointment to be seen in: 6 Weeks Mom and baby should come to the [facility] for the follow-up appointment. Appointment Date/Time: Thursday, January 05, 2023 at 9:00 am What to expect at your follow-up visit: Physical Assessment, Blood Pressure Check Call [phone] if you are unable to keep your appointment time. BREAST CARE: * Wear a snug supportive bra. * For engorgement discomfort: Breast Feeding: * Apply warm moist washcloths * Express milk as needed to relieve engorgement * Wear loose clothing Bottle Feeding: * May apply ice packs * For sore nipples: * Identify correct latch-on * Apply warm moist washcloths before and after nursing * Air dry nipples after nursing * May apply Lansinoh cream to nipples PERINEAL CARE: * Until bleeding stops, use your ignacia bottle after urinating * Change your pad frequently throughout the day * You may take sitz baths several times a day (fill your bathtub with warm water and soak for 20 minutes.) Do NOT bathe in the water * No tub baths until seen by your physician - You may shower ACTIVITY: * Rest as much as possible. * Do not exercise or lift anything heavier than your baby (such as laundry or other children.) * Avoid stairs or driving as much as possible. * Do not put anything into the vagina. No douching, tampons, or sexual activity until seen by physician. NOTIFY PHYSICIAN IF YOU HAVE ANY QUESTIONS OR IF ANY OF THE FOLLOWING SYMPTOMS OCCUR: * If your perineum becomes red, swollen, or more painful than what you have experienced in the hospital
--- NOTE | 2023-01-03 15:57 | PC.NURSE ---
Patient consented for section. OR team including MD present at 1500. Prepping patient for OR when patient became extremely uncomfortable and began screaming in pain. RN reassessed cervical exam at 1520 and found patient to be completely dilated with a very bulgy bag of membranes. Called MD and nursery into labor room. Patient spontaneously ruptured at 1524 and delivered a baby girl at 1525.
[2023-01-03] MEDS: OXYTOCIN 30 UNITS/NS 500 ML 30 UNITS/500 ML BAG 125 UNITS IV CONT (16:05)
--- NOTE | 2023-01-03 16:49 | PC.NURSE ---
Filled out consent forms with patient using supervisor shed workers. Playroom Attendant ID [id number].
[2023-01-03] MEDS: BENZOCAINE 20% AER SPR (*SP) 56 GM CAN 1 SPRAY TOPICAL (17:32)
[2023-01-03] MEDS: WITCH HAZEL 40 PADS 1 PAD TOPICAL (17:32)
--- NOTE | 2023-01-03 19:57 | OBPPTRN ---
01/03/2023 at 1749 Patient transferred to post room #291 by first floor staff. Patient oriented to unit, room, information board, rooming in, admission packet and security measures with the use of the language line. Patient verbalizes understanding.
[2023-01-03] MEDS: ACETAMINOPHEN 325 MG TABLET 650 MG PO (23:14)
[2023-01-04 03:13] LABS: Hemoglobin 9.9 g/dL (12.0-15.0)
--- NOTE | 2023-01-04 07:00 | PC.NURSE ---
PT introductions made and plan of care discussed per post , pain management, breast feeding, daily care activities and pending discharge to home. PT speaks only Kinyarwanda and language is a barrier to learning. Spouse bilingual and able to help interpret for patient. Pt received such instructions per one to one discussion, mom baby care guide and demonstrations this shift. PT verbalized understanding of such instruction.
[2023-01-04 10:00] VITALS: BP 94/56; PULSE 79; RESP 18; TEMP 36.2; O2SAT 100
--- NOTE | 2023-01-04 10:16 | PM.OBPNVD ---
OB - PN: Subj Subjective Date/time seen: 01/04/23 0940 Interval history: PPD 1 from . Doing well. Urinating without difficulty. Denies passing any large clots. Denies dizziness with ambulating. Tolerating po food and fluids. Bonding with . well. Patient comments: no complaints and pain well controlled baby status: doing well and nursing well [place] feeding status: exclusively breast feeding Narrative: Collateral Specialist Jewel #[id number] used for discussion and exam. OB - PN: Obj Data Labs 01/04/23 03:00 Labs: Laboratory Results - last 24 hr 01/03/23 01/04/23 15:09 03:00 WBC 11.9 H RBC 4.12 L Hgb 11.6 L 9.9 L Hct 35.1 L 30.0 L MCV 85.2 MCH 28.2 MCHC 33.0 RDW 13.4 Plt Count 273 MPV 10.1 Immature Gran % (Auto) 0.5 Neut % (Auto) 70.9 Lymph % (Auto) 21.3 [place] % (Auto) 6.2 Eos % (Auto) 0.8 Baso % (Auto) 0.3 Lymph # (Auto) 2.53 [place] # (Auto) 0.7 H Eos # (Auto) 0.1 Baso # (Auto) 0.0 Abs Immat Gran (auto) 0.06 H Absolute Neuts (auto) 8.4 H Absolute Nucleated RBC 0.0 Nucleated RBC % 0.0 Blood Type O Positive Antibody Screen Negative OB - PN A/P Assessment and Plan (1) , delivered: Code(s): O34.219 - Maternal care for unspecified type scar from previous delivery Status: Acute (2) Patient is a currently breast-feeding mother: Code(s): Z39.1 - Encounter for care and examination of lactating mother Status: Acute Plan day: 1 Plan: discharge home Comments: Pt desires DC home today. Plans to follow up at her primary CALIBRATION TECHNICIAN's office. Plans Nexplanon placement at 6 weeks for contraception. Time Spent With Patient Time: Total time spent is greater than 50% in coordination of care (as documented) at patient's floor/unit and/or counseling patient: Review of Systems Review of Systems: All systems reviewed & are unremarkable except as noted in HPI and below Exam Narrative: Alert and oriented. Mood is pleasant and cooperative. Perineum with minimal edema. Fundus firm and below umbilicus. Const: General: cooperative, healthy appearing, no acute distress and alert Orientation/consciousness: patient oriented x3 Limitations: no limitations Resp: Effort & Inspection: normal respiratory effort and able to speak in complete sentences Auscultation: clear to auscultation bilaterally Cardio: Rate: regular rate GI: Inspection: normal to inspection Auscultation: normal bowel sounds : General: Yes bladder normal to palpation Bimanual exam- vagina & uterus: bladder normal to palpation OB/external & speculum: vaginal bleeding Other: Fundus firm and below U Skin: General skin exam: normal color and no rashes or lesions noted Neuro: General: patient oriented x3 and moves all extremities Cognition (Neuro): normal cognition Extrem: General: normal to inspection and no calf tenderness Psych: Appearance: grossly normal Mental Status: mental status grossly normal Affect: normal affect Thought process: Normal thought process present
[2023-01-04] MEDS: IBUPROFEN 600 MG TABLET PO ×2 (10:51→16:23)
[2023-01-04] MEDS: MULTIVIT/MIN/PREN/FOL AC/IRON TABLET 1 TAB PO (10:51)
[2023-01-04] MEDS: ACETAMINOPHEN 325 MG TABLET 650 MG PO (10:52)
[2023-01-04] MEDS: POLYSACCHARIDE IRON COMPLEX 150 MG CAPSULE PO ×2 (10:52→16:24)
[2023-01-04] MEDS: DOCUSATE SODIUM 100 MG CAPSULE PO (16:24)
--- NOTE | 2023-01-04 18:48 | PC.NURSE ---
Jake OLSON used the stratus conciliator and went over D/C info with her. She V/U'd.
--- NOTE | 2023-01-04 18:51 | PC.NURSE ---
1800 FOB translated to Mom discharge instructions. She V/U'd and signed.
--- NOTE | 2023-01-04 18:54 | PC.NURSE ---
4848 Patient viewed the discharge video Mother & Baby Care, The First Two Weeks . Patient was given the opportunity and encouraged to ask questions. Patient verbalized understanding of information shared and has been given the mother/baby guide for home reference. She viewed the Japanese version.
[2023-01-05 05:59] LABS: Rapid Plasma Reagin Non-Reactive (NonReactive)
[2023-01-05 09:36] VITALS: BP 111/69; PULSE 64; RESP 18; TEMP 36.8; O2SAT 100
== END 2023-01-04 18:39 | disposition home or self-care (01) | DRG 560 ==
LOC: ANHLDR 15:46 → ANHOB2 17:55
PROVIDERS: Admitting Provider Obstetrics & Gynecology Gynecology; Visit Provider Obstetrics & Gynecology Gynecology
DX: O34.219 Maternal care for unspecified type scar from previous cesarean delivery (principal); Z37.0 Single live birth; O62.3 Precipitate labor; O70.1 Second degree perineal laceration during delivery; Z3A.39 39 weeks gestation of pregnancy
CPT/HCPCS: 36415; 85014; 85018; 85025; 86592; 86850; 86900; 86901; A9270; J2274; J2590; J7120